=== PATIENT | male | born 1980 | race Caucasian/White ===

== ENCOUNTER 2024-06-19 20:11 | Emergency (ER) | payer BC ==
[~2024-06-19] VITALS: Ht 177.8 cm; Wt 104.3 kg
[2024-06-19 21:53] VITALS: BP 132/80; TEMP 98.4; O2SAT 98
== END 2024-06-19 21:53 | disposition home or self-care (01) ==
LOC: ER 20:14
DX: H53.8 Other visual disturbances (principal); R43.8 Other disturbances of smell and taste; I10 Essential (primary) hypertension; Z90.49 Acquired absence of other specified parts of digestive tract; F17.200 Nicotine dependence, unspecified, uncomplicated
CPT/HCPCS: 70450-TC